=== PATIENT | male | born 1955 | race Caucasian/White ===

== ENCOUNTER 2018-05-07 05:26 | Inpatient (IN) | payer MEDICAID ==
[~2018-05-07] VITALS: Ht 167.6 cm; Wt 92.6 kg
[2018-05-07] VITALS (8 sets, daily range): BP systolic 112–147; BP diastolic 64–81
[2018-05-07] MEDS ORDERED: ONDANSETRON HCL 4MG/2ML INJ IV STA (05:32)
[2018-05-07] MEDS ORDERED: FUROSEMIDE 40MG/4ML VIAL IV ONE (05:45)
[2018-05-07] MEDS ORDERED: NITROGLYCERIN OINT 1GM/INCH UDPKT TD ONE (05:45)
[2018-05-07 06:03] LABS: BG BASE EXCESS 3.5 mmol/L (-2.0-2.0); BG BILEVEL POS AIRWAY PRESSURE 15/5; BG CARBOXYHEMOGLOBIN 2.3 % (0.5-1.5); BG DEOXYHEMOGLOBIN 11.4 % (0.0-5.0); BG FRACTION INSPIRED OXYGEN 50; BG HCO3 ACT 29.1 mmol/L (22.0-26.0); BG METHEMOGLOBIN 0.3 % (0.0-1.5); BG OXYGEN SATURATION 88.3 % (92.0-98.5); BG PCO2 47.8 mmHg (35.0-45.0); BG PH 7.402 (7.350-7.450); BG PO2 56.7 mmHg (75.0-100.0); BG SAMPLE SITE RIGHT BRACHIAL; BG TOTAL HEMOGLOBIN 13.1 g/dL (12.0-18.0); BG VENT MODE MASK - BIPAP
[2018-05-07 06:19] LABS: CHLORIDE 95 mEq/L (98-107)
[2018-05-07 06:21] LABS: BASOPHILS % 0.7 % (0.0-2.0); EOSINOPHILS % 0.5 % (0.0-5.0); HEMATOCRIT. 38.5 % (42.0-52.0); HEMOGLOBIN. 12.8 g/dL (14.0-18.0); LYMPHOCYTES % 23.3 % (20.0-50.0); MEAN CORPUSCULAR HEMOGLOBIN 30.4 pg (28.0-32.0); MEAN CORPUSCULAR VOLUME 91.3 fL (80.0-94.0); MEAN PLATELET VOLUME 6.7 fl (7.4-10.4); MONOCYTES % 6.3 % (2.0-8.0); NEUTROPHILS % 69.2 % (40.0-76.0); PLATELET 511 x1000/uL (130-400); RED BLOOD CELL COUNT 4.22 mill/uL (4.7-6.1); RED CELL DISTRIBUTION WIDTH 15.1 % (11.6-14.6)
[2018-05-07] MEDS ORDERED: DOCUSATE SODIUM 100MG CAPSULE PO PRN (07:30)
[2018-05-07] MEDS ORDERED: LORAZEPAM 0.5MG TABLET PO PRN (07:30)
[2018-05-07] MEDS ORDERED: ACETAMINOPHEN 325MG TABLET PO PRN (07:30)
[2018-05-07] MEDS ORDERED: IPRATROPIUM/ALBUTEROL 0.5-3(2.5)MG/3ML NEB INH PRN (07:30)
[2018-05-07] MEDS ORDERED: ONDANSETRON HCL 4MG/2ML INJ IV PRN (07:30)
[2018-05-07] MEDS ORDERED: TRAMADOL 50MG TABLET PO PRN (07:30)
[2018-05-07] MEDS ORDERED: CLONIDINE 0.1MG TABLET PO PRN (07:30)
[2018-05-07] MEDS ORDERED: MAGNESIUM/ALUMINUM HYDROXIDE/SIMETHICONE 30ML UDC PO PRN (07:30)
[2018-05-07] MEDS ORDERED: NITROGLYCERIN 0.4MG TABLET SL SL PRN (07:30)
[2018-05-07] MEDS: FUROSEMIDE 40MG/4ML VIAL IVP SCH ×2 (09:53→18:37)
[2018-05-07] MEDS: LISINOPRIL 20MG TABLET PO SCH ×2 (09:53→22:27)
[2018-05-07] MEDS: ASPIRIN 325MG EC TABLET PO SCH (09:53)
[2018-05-07] MEDS: SPIRONOLACTONE 25MG TABLET PO SCH ×2 (09:53→22:26)
[2018-05-07] MEDS: FAMOTIDINE 20MG TABLET PO SCH ×2 (09:53→22:28)
[2018-05-07] MEDS: ENOXAPARIN 100MG/ML SYR SUBCUT SCH ×2 (09:56→22:28)
[2018-05-07 15:53] LABS: CREATINE KINASE MB FRACTION 10.3 ng/mL (0.5-3.6)
[2018-05-07] MEDS: NITROGLYCERIN OINT 1GM/INCH UDPKT TD SCH ×2 (18:37→23:00)
[2018-05-07] MEDS: AMLODIPINE 2.5MG TABLET PO SCH ×2 (18:38→22:27)
[2018-05-07] MEDS: IPRATROPIUM/ALBUTEROL 0.5-3(2.5)MG/3ML NEB HHN SCH (20:49)
[2018-05-07] MEDS ORDERED: ZOLPIDEM TARTRATE 5MG TABLET PO PRN (21:00)
[2018-05-07] MEDS: GUAIFENESIN 200MG/10ML SUGAR FREE UDC PO PRN (22:27)
[2018-05-08] VITALS (17 sets, daily range): BP systolic 111–146; BP diastolic 46–78
[2018-05-08] MEDS: IPRATROPIUM/ALBUTEROL 0.5-3(2.5)MG/3ML NEB HHN SCH ×4 (01:47→20:25)
[2018-05-08] MEDS: NITROGLYCERIN OINT 1GM/INCH UDPKT TD SCH ×4 (05:00→23:00)
[2018-05-08 08:22] LABS: D-DIMER 0.77 mg/L FEU (<0.50); INR 1.1; PROTHROMBIN TIME 10.8 sec (9.1-11.1)
[2018-05-08 08:23] LABS: BASOPHILS % 0.2 % (0.0-2.0); EOSINOPHILS % 2.2 % (0.0-5.0); HEMATOCRIT. 38.2 % (42.0-52.0); HEMOGLOBIN. 12.3 g/dL (14.0-18.0); LYMPHOCYTES % 31.9 % (20.0-50.0); MEAN CORPUSCULAR HEMOGLOBIN 29.4 pg (28.0-32.0); MEAN CORPUSCULAR VOLUME 91.1 fL (80.0-94.0); MEAN PLATELET VOLUME 7.2 fl (7.4-10.4); MONOCYTES % 9.6 % (2.0-8.0); NEUTROPHILS % 56.1 % (40.0-76.0); PLATELET 484 x1000/uL (130-400); RED CELL DISTRIBUTION WIDTH 15.3 % (11.6-14.6)
[2018-05-08 08:42] LABS: CHLORIDE 101 mEq/L (98-107)
[2018-05-08 08:52] LABS: LDL CHOLESTEROL 167 mg/dL (5-100)
[2018-05-08 08:53] LABS: CREATINE KINASE 484 IU/L (39-308); CREATINE KINASE MB FRACTION 4.8 ng/mL (0.5-3.6)
[2018-05-08 08:54] LABS: HDL CHOLESTEROL 41 mg/dL (40-59)
[2018-05-08] MEDS: ASPIRIN 325MG EC TABLET PO SCH (09:00)
[2018-05-08] MEDS: AMLODIPINE 2.5MG TABLET PO SCH ×2 (09:00→20:31)
[2018-05-08] MEDS: LISINOPRIL 20MG TABLET PO SCH (09:00)
[2018-05-08] MEDS: SPIRONOLACTONE 25MG TABLET PO SCH ×2 (09:00→20:30)
[2018-05-08] MEDS: FAMOTIDINE 20MG TABLET PO SCH ×2 (09:00→20:30)
[2018-05-08] MEDS: FUROSEMIDE 40MG/4ML VIAL IVP SCH ×2 (09:32→17:46)
[2018-05-08 10:01] LABS: *BARBITURATES SCREEN URINE NEGATIVE (NEGATIVE)
[2018-05-08 10:02] LABS: *AMPHETAMINES SCREEN URINE NEGATIVE (NEGATIVE); *BENZODIAZEPINES SCREEN URINE NEGATIVE (NEGATIVE); *COCAINE SCREEN URINE NEGATIVE (NEGATIVE); CANNABINOID URINE SCREEN PRESUMTIVE POSITIVE (NEGATIVE); METHADONE URINE SCREEN NEGATIVE (NEGATIVE); OPIATES URINE SCREEN NEGATIVE (NEGATIVE); PHENCYCLIDINE URINE SCREEN NEGATIVE (NEGATIVE)
[2018-05-08] MEDS ORDERED: IODIXANOL 320MG/ML 100 ML BOTTLE IV ONE (11:12)
[2018-05-08] MEDS ORDERED: LIDOCAINE HCL 1% 20ML VIAL (Pyxis) INJ ONE (11:12)
[2018-05-08] MEDS ORDERED: MIDAZOLAM HCL 2 MG/2 ML VIAL ONE (11:25)
[2018-05-08] MEDS ORDERED: FENTANYL CITRATE/PF 50MCG/ML 2ML VIAL ONE (11:26)
[2018-05-08] MEDS ORDERED: ASPIRIN/SOD BICARB/CITRIC ACID 324MG TAB EFF ONE (11:41)
[2018-05-08] MEDS ORDERED: ONDANSETRON HCL 4MG/2ML INJ IV PRN (12:00)
[2018-05-08] MEDS ORDERED: MORPHINE SULFATE 4 MG/ML CPJ (NOT FOR IM USE) IV PRN (12:00)
[2018-05-08] MEDS ORDERED: ACETAMINOPHEN 325MG TABLET PO PRN (12:00)
[2018-05-08] MEDS ORDERED: ATROPINE SULFATE 1MG/10ML SYR IV PRN (12:00)
[2018-05-08] MEDS ORDERED: SODIUM CHLORIDE 0.45% 500 ML IV ONE (12:00)
[2018-05-08] MEDS: NICOTINE 21MG PATCH TD SCH (13:30)
[2018-05-08 14:16] LABS: T4 FREE 0.84 ng/dL (0.76-1.46)
[2018-05-08 14:37] LABS: HEPATITIS B SURFACE ANTIGEN NEGATIVE
[2018-05-08] MEDS ORDERED: NITROGLYCERIN 50MCG/ML 10ML VIAL (CATH LAB) IV ONE (14:45)
[2018-05-08] MEDS ORDERED: NICARDIPINE 100MCG/ML 10ML VIAL (CATH LAB) IV ONE (14:45)
[2018-05-08 15:06] LABS: HEPATITIS A AB IGM NEGATIVE (NEGATIVE)
[2018-05-08] MEDS ORDERED: HEPARIN SODIUM 1,000 UNIT/1ML VIAL IV ONE (16:04)
[2018-05-08] MEDS: BUDESONIDE 0.5MG/2ML NEB HHN SCH (20:25)
[2018-05-08] MEDS: LOSARTAN POTASSIUM 25 MG TABLET PO SCH (20:30)
[2018-05-08] MEDS: GUAIFENESIN 200MG/10ML SUGAR FREE UDC PO PRN (20:31)
[2018-05-09] VITALS (10 sets, daily range): BP systolic 102–146; BP diastolic 41–78
[2018-05-09] MEDS: IPRATROPIUM/ALBUTEROL 0.5-3(2.5)MG/3ML NEB HHN SCH ×2 (02:15→09:00)
[2018-05-09] MEDS: NITROGLYCERIN OINT 1GM/INCH UDPKT TD SCH ×2 (05:12→11:00)
[2018-05-09 06:26] LABS: BASOPHILS % 1.1 % (0.0-2.0); EOSINOPHILS % 3.5 % (0.0-5.0); HEMATOCRIT. 37.5 % (42.0-52.0); HEMOGLOBIN. 12.2 g/dL (14.0-18.0); LYMPHOCYTES % 25.9 % (20.0-50.0); MEAN CORPUSCULAR HEMOGLOBIN 29.8 pg (28.0-32.0); MEAN CORPUSCULAR VOLUME 91.5 fL (80.0-94.0); MEAN PLATELET VOLUME 7.6 fl (7.4-10.4); MONOCYTES % 8.6 % (2.0-8.0); NEUTROPHILS % 60.9 % (40.0-76.0); PLATELET 457 x1000/uL (130-400); RED CELL DISTRIBUTION WIDTH 15.3 % (11.6-14.6)
[2018-05-09] MEDS: FUROSEMIDE 40MG/4ML VIAL IVP SCH (06:47)
[2018-05-09 07:24] LABS: CHLORIDE 102 mEq/L (98-107)
[2018-05-09] MEDS: LOSARTAN POTASSIUM 25 MG TABLET PO SCH (08:40)
[2018-05-09] MEDS: AMLODIPINE 2.5MG TABLET PO SCH (08:42)
[2018-05-09] MEDS: SPIRONOLACTONE 25MG TABLET PO SCH (08:43)
[2018-05-09] MEDS: ASPIRIN 325MG EC TABLET PO SCH (08:43)
[2018-05-09] MEDS: FAMOTIDINE 20MG TABLET PO SCH (08:43)
[2018-05-09] MEDS: BUDESONIDE 0.5MG/2ML NEB HHN SCH (09:00)
[2018-05-09] MEDS: NICOTINE 21MG PATCH TD SCH (09:00)
[2018-05-09 14:42] LABS: CLARITY URINE CLEAR (CLEAR); COLOR URINE YELLOW (YELLOW); KETONES URINE NEGATIVE (NEGATIVE); LEUKOCYTE ESTERASE URINE NEGATIVE (NEGATIVE); NITRITE URINE NEGATIVE (NEGATIVE); OCCULT BLOOD URINE NEGATIVE (NEGATIVE); PH URINE 7.5 (4.5-8.0); PROTEIN URINE 2+ (NEGATIVE); SPECIFIC GRAVITY URINE 1.006 (1.005-1.030); UROBILINOGEN URINE 0.2 E.U./dL (0.2-1.0)
[2018-05-09] MEDS ORDERED: ATORVASTATIN CALCIUM 40MG TABLET PO SCH (21:00)
[2018-05-09] MEDS ORDERED: ATORVASTATIN CALCIUM 20MG TABLET PO SCH (21:00)
[2018-05-10 08:26] LABS: HIV SCREEN 4G Non Reactive (Non Reactive)
[2018-05-11 10:06] LABS: ANGIOTENSION CONVERTING ENZYME < 15 U/L (14-82); ANTI-NUCLEAR ANTIBODIES DIRECT Negative (Negative); DRVVT LA 34.7 sec (0.0-47.0); LUPUS ANTICOAG INTERPRETATION Comment: (.); PTT-LA 41.6 sec (0.0-51.9)
[2018-05-11 13:11] LABS: ACTIN (SMOOTH MUSCLE) ANTIBODY 44 Units (0-19); ANTI-MYELOPEROXIDASE AB < 9.0 U/mL (0.0-9.0); ANTI-PROTEINASE 3 ABS < 3.5 U/mL (0.0-3.5)
[2018-05-11 15:07] LABS: ATYPICAL P-ANCA <1:20 titer (Neg:<1:20); CYTOPLASMIC C-ANCA <1:20 titer (Neg:<1:20); PERINUCLEAR P-ANCA <1:20 titer (Neg:<1:20)
[2018-05-13 13:06] LABS: ANTI-CARDIOLIPIN AB IGA < 9 APL U/mL (0-11); ANTI-CARDIOLIPIN AB IGG < 9 GPL U/mL (0-14)
== END 2018-05-09 15:37 | disposition home or self-care (01) | DRG 190 ==
LOC: ER 05:26 → 5EST 05:48 → EDBEDREQTM 05:49 → EDBEDREQ 05:49 → EDBEDREQSVC 05:50 → ENRESERV 07:37 → 5EST 05-08 06:33 → 3WST 05-08 12:30
PROVIDERS: ADMIT Internal Medicine; ATTEND Internal Medicine
PROC: 5A09357 Assistance with Respiratory Ventilation, Less than 24 Consecutive Hours, Continuous Positive Airway Pressure (ICD-10-PCS; principal; 2018-05-07)
PROC: 4A023N7 Measurement of Cardiac Sampling and Pressure, Left Heart, Percutaneous Approach (ICD-10-PCS; 2018-05-08)
PROC: B2111ZZ Fluoroscopy of Multiple Coronary Arteries using Low Osmolar Contrast (ICD-10-PCS; 2018-05-08)
PROC: B2151ZZ Fluoroscopy of Left Heart using Low Osmolar Contrast (ICD-10-PCS; 2018-05-08)
DX: I21.4 Non-ST elevation (NSTEMI) myocardial infarction (principal); J96.01 Acute respiratory failure with hypoxia; I50.43 Acute on chronic combined systolic (congestive) and diastolic (congestive) heart failure; E44.0 Moderate protein-calorie malnutrition; E87.5 Hyperkalemia; E11.65 Type 2 diabetes mellitus with hyperglycemia; E11.51 Type 2 diabetes mellitus with diabetic peripheral angiopathy without gangrene; E87.1 Hypo-osmolality and hyponatremia; E78.2 Mixed hyperlipidemia; I11.0 Hypertensive heart disease with heart failure; I25.10 Atherosclerotic heart disease of native coronary artery without angina pectoris; J44.1 Chronic obstructive pulmonary disease with (acute) exacerbation; F17.210 Nicotine dependence, cigarettes, uncomplicated; Z68.33 Body mass index [BMI] 33.0-33.9, adult; I25.2 Old myocardial infarction; Z59.0 Homelessness; Z79.4 Long term (current) use of insulin; Z89.512 Acquired absence of left leg below knee; Z97.14 Presence of artificial left leg (complete) (partial)
CPT/HCPCS: 36415; 36600; 71045; 80048; 80061; 80305; 82164; 82375; 82550; 82553; 82805; 82962; 83036; 83520; 83735; 83880; 84439; 84443; 84481; 84484; 85379; 85613; 85651; 85732; 86038; 86140; 86147; 86256; 86705; 86709; 86803; 87340; 87389; 93005; 93306; 93458; 93970; 94640; 94660; 96374; 99291; C1769; C1887; C1893; J1644; J1650; J1940; J2250; J2405; J3010; J3490; J7620; J7626; Q9967

== ENCOUNTER 2025-02-05 14:03 | Inpatient (IN) | payer MEDICARE, MEDICAID ==
[~2025-02-05] VITALS: Ht 172.7 cm; Wt 85.3 kg
[2025-02-05] VITALS (30 sets, daily range): BP systolic 120–145; BP diastolic 44–59; PULSE 44–90; RESP 15–23; TEMP 36.4–38.1; O2SAT 55–100
[2025-02-05] MEDS: SODIUM CHLORIDE 0.9% 1,000 ML IV ONE (14:34)
[2025-02-05] MEDS: CALCIUM GLUCONATE 100MG/ML 10ML VIAL IV ONE ×2 (14:46→16:01)
[2025-02-05 14:59] LABS: BASOPHILS % 0.3 % (0.0-2.0); EOSINOPHILS % 0.1 % (0.0-5.0); HEMATOCRIT. 30.7 % (42.0-52.0); HEMOGLOBIN. 9.7 g/dL (14.0-18.0); LYMPHOCYTES % 24.4 % (20.0-50.0); MEAN PLATELET VOLUME 8.9 fl (7.4-10.4); MONOCYTES % 8.3 % (2.0-8.0); NEUTROPHILS % 66.9 % (40.0-76.0); PLATELET 275 x1000/uL (130-400); RED BLOOD CELL COUNT 3.39 mill/uL (4.7-6.1); RED CELL DISTRIBUTION WIDTH 18.3 % (11.6-14.6)
[2025-02-05 15:13] LABS: UREA NITROGEN BLOOD 62 mg/dL (9-23)
[2025-02-05 15:14] LABS: ASPARTATE AMINOTRANSFERASE 20 IU/L (<34)
[2025-02-05 15:15] LABS: BILIRUBIN DIRECT < 0.1 mg/dL (<=3.0); BILIRUBIN TOTAL < 0.2 mg/dL (0.1-1.0); PHOSPHORUS 7.7 mg/dL (2.5-4.9); PROTEIN TOTAL 6.6 g/dL (6.0-8.3)
[2025-02-05 15:17] LABS: TROPONIN I HIGH SENSITIVITY 9 ng/L (3.0-53)
[2025-02-05 15:20] LABS: CREATININE 5.7 mg/dL (0.6-1.3)
[2025-02-05 15:25] LABS: INR 1.1
[2025-02-05] MEDS: LACTATED RINGERS 1,000 ML IV SCH ×2 (15:53→15:54)
[2025-02-05] MEDS: CALCIUM GLUCONATE 1GM PREMIX 50 ML IV ONE (16:01)
[2025-02-05] MEDS: DEXTROSE 50% WATER 50ML SYRINGE IV ONE (16:09)
[2025-02-05] MEDS: INSULIN REGULAR (HUMULIN R) 1000UNITS/10ML VIAL IV ONE (16:09)
[2025-02-05] MEDS: ALBUTEROL (0.083%) 2.5MG/3ML NEB HHN ONE (16:17)
[2025-02-05] MEDS ORDERED: VANCOMYCIN 1G PREMIX 200 ML IV SCH (17:15)
[2025-02-05] MEDS ORDERED: DEXTROSE 50% WATER 50ML SYRINGE IV PRN (17:30)
[2025-02-05] MEDS ORDERED: ONDANSETRON HCL 4MG/2ML INJ IV PRN (17:30)
[2025-02-05] MEDS ORDERED: IPRATROPIUM/ALBUTEROL 0.5-3(2.5)MG/3ML NEB HHN PRN (17:30)
[2025-02-05] MEDS ORDERED: ACETAMINOPHEN 650MG SUPP PR PRN (17:30)
[2025-02-05] MEDS: NOREPINEPHRINE 8MG/250ML PMX 250 ML IV ONE (17:40)
[2025-02-05] MEDS ORDERED: EPINEPHRINE 10 MG in SODIUM CHLORIDE 0.9% 240 ML IV PRN (17:45)
[2025-02-05 17:48] LABS: CLARITY URINE CLEAR (CLEAR); COLOR URINE YELLOW (YELLOW); PH URINE 5.5 (4.5-8.0); PROTEIN URINE 1+ (NEGATIVE); SPECIFIC GRAVITY URINE 1.017 (1.005-1.030)
[2025-02-05 17:49] LABS: GLUCOSE URINE TRACE (NEGATIVE); KETONES URINE TRACE (NEGATIVE); LEUKOCYTE ESTERASE URINE NEGATIVE (NEGATIVE); NITRITE URINE NEGATIVE (NEGATIVE); OCCULT BLOOD URINE NEGATIVE (NEGATIVE); UROBILINOGEN URINE 0.2 E.U./dL (0.2-1.0)
[2025-02-05 17:55] LABS: BG BASE EXCESS -11.8 mmol/L (-2.0-3.0); BG CARBOXYHEMOGLOBIN 0.3 % (0.5-1.5); BG DEOXYHEMOGLOBIN 0.1 % (0.0-5.0); BG FRACTION INSPIRED OXYGEN 100; BG HCO3 ACT 13.4 mmol/L (21.0-28.0); BG METHEMOGLOBIN 0.0 % (0.5-1.5); BG OXYGEN SATURATION 99.9 % (94.0-98.0); BG OXYHEMOGLOBIN 99.6 % (94.0-98.0); BG PCO2 28.8 mmHg (35.0-48.0); BG PEEP (cmH2O) 10.0 cmH2O; BG PH 7.286 (7.350-7.450); BG PO2 533.2 mmHg (83.0-108.0); BG SAMPLE SITE LEFT RADIAL; BG TIDAL VOLUME(mL) 450.0 mL; BG TOTAL HEMOGLOBIN 11.8 g/dL (13.5-17.5); BG VENT MODE VENT - AC; BG VENT RATE 18.0 set
[2025-02-05] MEDS: PIPERACILLIN/TAZO 3.375G/50ML 50 ML IV SCH (17:56)
[2025-02-05] MEDS: EPINEPHRINE 10 MG in SODIUM CHLORIDE 0.9% 240 ML IV PRN (17:56)
[2025-02-05 17:58] LABS: BACTERIA URINE 1+; RBC URINE 0-2 /hpf (0-2); SQUAMOUS EPITHELIAL CELL URINE FEW /lpf (RARE/1+); WBC URINE 0-2 /hpf (0-2)
[2025-02-05] MEDS ORDERED: NOREPINEPHRINE 8MG/250ML PMX 250 ML IV PRN (18:00)
[2025-02-05] MEDS: DOPAMINE 400MG/250ML PREMIX 250 ML IV PRN (18:08)
[2025-02-05] MEDS: SODIUM BICARBONATE 8.4% 50MEQ/50ML SYR IV SCH (18:08)
[2025-02-05 18:19] LABS: BASOPHILS % 0.4 % (0.0-2.0); EOSINOPHILS % 0.2 % (0.0-5.0); HEMATOCRIT. 30.6 % (42.0-52.0); HEMOGLOBIN. 9.4 g/dL (14.0-18.0); LYMPHOCYTES % 32.7 % (20.0-50.0); MEAN PLATELET VOLUME 9.2 fl (7.4-10.4); MONOCYTES % 8.7 % (2.0-8.0); NEUTROPHILS % 58.0 % (40.0-76.0); PLATELET 189 x1000/uL (130-400); RED BLOOD CELL COUNT 3.27 mill/uL (4.7-6.1); RED CELL DISTRIBUTION WIDTH 18.5 % (11.6-14.6)
[2025-02-05 18:37] LABS: UREA NITROGEN BLOOD 48 mg/dL (9-23)
[2025-02-05 18:39] LABS: CREATINE KINASE MB FRACTION 3.7 ng/mL (0.5-3.6); TROPONIN I HIGH SENSITIVITY 10 ng/L (3.0-53)
[2025-02-05 18:42] LABS: CREATININE 5.0 mg/dL (0.6-1.3); FOLIC ACID (FOLATE) SERUM 11.97 ng/mL (>5.38)
[2025-02-05 18:43] LABS: PHOSPHORUS 8.1 mg/dL (2.5-4.9); VITAMIN B12 SERUM < 60 pg/mL (211-911)
[2025-02-05] MEDS ORDERED: CEFEPIME 2GM IN DEXT 5% 100ML IV SCH (19:00)
[2025-02-05 19:14] LABS: HEPATITIS A AB IGM NEGATIVE (Negative); HEPATITIS B CORE AB IGM NEGATIVE (Negative)
[2025-02-05 19:15] LABS: HEPATITIS C AB NON REACTIVE (Neg) (Negative)
[2025-02-05 19:36] LABS: BG BASE EXCESS -5.8 mmol/L (-2.0-3.0); BG CARBOXYHEMOGLOBIN 0.3 % (0.5-1.5); BG DEOXYHEMOGLOBIN 1.0 % (0.0-5.0); BG FRACTION INSPIRED OXYGEN 100; BG HCO3 ACT 19.0 mmol/L (21.0-28.0); BG METHEMOGLOBIN 0.1 % (0.5-1.5); BG OXYGEN SATURATION 99.0 % (94.0-98.0); BG OXYHEMOGLOBIN 98.6 % (94.0-98.0); BG PCO2 34.8 mmHg (35.0-48.0); BG PEEP (cmH2O) 10.0 cmH2O; BG PH 7.355 (7.350-7.450); BG PO2 169.9 mmHg (83.0-108.0); BG SAMPLE SITE RIGHT BRACHIAL; BG TIDAL VOLUME(mL) 450.0 mL; BG TOTAL HEMOGLOBIN 10.7 g/dL (13.5-17.5); BG VENT MODE VENT - AC; BG VENT RATE 18.0 set
[2025-02-05] MEDS: DEXTROSE 50% WATER 50ML SYRINGE IV NR (20:07)
[2025-02-05] MEDS: SODIUM BICARBONATE 8.4% 50MEQ/50ML SYR IV NR (20:07)
[2025-02-05] MEDS: CALCIUM CHLORIDE 1GM/10ML SYR IV NR (20:07)
[2025-02-05] MEDS: INSULIN REGULAR (HUMULIN R) 1000UNITS/10ML VIAL IV NR (20:08)
[2025-02-05] MEDS: BLOOD SUGAR DIAGNOSTIC STRIP TEST SCH (22:33)
[2025-02-05] MEDS: CEFEPIME 2GM PREMIX 100ML IV SCH (22:55)
[2025-02-06] VITALS (121 sets, daily range): BP systolic 106–172; BP diastolic 35–125; PULSE 55–99; RESP 0–28; TEMP 37.1–38.4; O2SAT 95–100
[2025-02-06 00:33] LABS: TROPONIN I HIGH SENSITIVITY 35 ng/L (3.0-53)
[2025-02-06] MEDS: PROPOFOL 10MG/ML 100ML 100 ML IV SCH (00:39)
[2025-02-06 03:02] LABS: BG BASE EXCESS -4.0 mmol/L (-2.0-3.0); BG CARBOXYHEMOGLOBIN 0.3 % (0.5-1.5); BG DEOXYHEMOGLOBIN 11.9 % (0.0-5.0); BG FRACTION INSPIRED OXYGEN 40; BG HCO3 ACT 18.8 mmol/L (21.0-28.0); BG METHEMOGLOBIN 0.3 % (0.5-1.5); BG OXYGEN SATURATION 88.0 % (94.0-98.0); BG OXYHEMOGLOBIN 87.5 % (94.0-98.0); BG PCO2 27.4 mmHg (35.0-48.0); BG PEEP (cmH2O) 10.0 cmH2O; BG PH 7.455 (7.350-7.450); BG PO2 53.8 mmHg (83.0-108.0); BG SAMPLE SITE RIGHT BRACHIAL; BG TIDAL VOLUME(mL) 450.0 mL; BG TOTAL HEMOGLOBIN 10.5 g/dL (13.5-17.5); BG VENT MODE VENT - AC; BG VENT RATE 18.0 set
[2025-02-06 05:50] LABS: BG BASE EXCESS -4.9 mmol/L (-2.0-3.0); BG CARBOXYHEMOGLOBIN 0.3 % (0.5-1.5); BG DEOXYHEMOGLOBIN 1.7 % (0.0-5.0); BG FRACTION INSPIRED OXYGEN 100; BG HCO3 ACT 18.3 mmol/L (21.0-28.0); BG METHEMOGLOBIN 0.0 % (0.5-1.5); BG OXYGEN SATURATION 98.3 % (94.0-98.0); BG OXYHEMOGLOBIN 98.0 % (94.0-98.0); BG PCO2 28.2 mmHg (35.0-48.0); BG PEEP (cmH2O) 10.0 cmH2O; BG PH 7.431 (7.350-7.450); BG PO2 123.1 mmHg (83.0-108.0); BG SAMPLE SITE RIGHT RADIAL; BG TIDAL VOLUME(mL) 450.0 mL; BG TOTAL HEMOGLOBIN 10.7 g/dL (13.5-17.5); BG VENT MODE VENT - AC; BG VENT RATE 16.0 set
[2025-02-06 07:06] LABS: BASOPHILS % 0.2 % (0.0-2.0); EOSINOPHILS % 0.0 % (0.0-5.0); HEMATOCRIT. 30.6 % (42.0-52.0); HEMOGLOBIN. 10.0 g/dL (14.0-18.0); LYMPHOCYTES % 10.8 % (20.0-50.0); MEAN PLATELET VOLUME 8.9 fl (7.4-10.4); MONOCYTES % 10.6 % (2.0-8.0); NEUTROPHILS % 78.4 % (40.0-76.0); PLATELET 267 x1000/uL (130-400); RED BLOOD CELL COUNT 3.45 mill/uL (4.7-6.1); RED CELL DISTRIBUTION WIDTH 17.5 % (11.6-14.6)
[2025-02-06 07:16] LABS: TROPONIN I HIGH SENSITIVITY 43 ng/L (3.0-53)
[2025-02-06 07:16] LABS: CREATINE KINASE MB FRACTION 2.1 ng/mL (0.5-3.6)
[2025-02-06 07:48] LABS: TRIGLYCERIDE 278 mg/dL (0-150); UREA NITROGEN BLOOD 34 mg/dL (9-23)
[2025-02-06 07:49] LABS: LDL CHOLESTEROL 24 mg/dL (5-100)
[2025-02-06 07:50] LABS: ASPARTATE AMINOTRANSFERASE 20 IU/L (<34)
[2025-02-06 07:51] LABS: BILIRUBIN TOTAL 0.4 mg/dL (0.1-1.0); PROTEIN TOTAL 6.0 g/dL (6.0-8.3)
[2025-02-06 07:52] LABS: T4 FREE 1.28 ng/dL (0.89-1.76)
[2025-02-06 08:09] LABS: PHOSPHORUS 4.4 mg/dL (2.5-4.9)
[2025-02-06] MEDS: ACETAMINOPHEN 650MG/20.3ML UDC NG PRN (08:10)
[2025-02-06 08:11] LABS: CREATININE 3.2 mg/dL (0.6-1.3)
[2025-02-06] MEDS: PANTOPRAZOLE SODIUM 40 MG/VIAL IV SCH (08:35)
[2025-02-06] MEDS: ENOXAPARIN 40MG/0.4ML SYR SUBCUT SCH (09:05)
[2025-02-06 11:12] LABS: *AMPHETAMINES SCREEN URINE NEGATIVE (NEGATIVE); *BARBITURATES SCREEN URINE NEGATIVE (NEGATIVE); *BENZODIAZEPINES SCREEN URINE NEGATIVE (NEGATIVE); *COCAINE SCREEN URINE NEGATIVE (NEGATIVE)
[2025-02-06 11:13] LABS: CANNABINOID URINE SCREEN NEGATIVE (NEGATIVE); ECSTASY MDMA SCREEN URINE NEGATIVE (NEGATIVE); METHADONE URINE SCREEN NEGATIVE (NEGATIVE); OPIATES URINE SCREEN NEGATIVE (NEGATIVE); PHENCYCLIDINE URINE SCREEN NEGATIVE (NEGATIVE)
[2025-02-06] MEDS: PROPOFOL 10MG/ML 100ML 100 ML IV PRN (13:06)
[2025-02-06] MEDS: VANCOMYCIN 2GM PMX (XELLIA) 400 ML IV SCH (14:17)
[2025-02-06] MEDS: CEFEPIME 1GM PREMIX 50ML IV SCH (21:40)
[2025-02-07] VITALS (100 sets, daily range): BP systolic 122–172; BP diastolic 49–112; PULSE 57–85; RESP 11–24; TEMP 37.6–38; O2SAT 95–100
[2025-02-07 00:54] LABS: CREATINE KINASE MB FRACTION 1.9 ng/mL (0.5-3.6)
[2025-02-07 00:55] LABS: TROPONIN I HIGH SENSITIVITY 35 ng/L (3.0-53)
[2025-02-07 00:56] LABS: ASPARTATE AMINOTRANSFERASE 17 IU/L (<34); BILIRUBIN DIRECT 0.2 mg/dL (<=3.0); BILIRUBIN TOTAL 0.4 mg/dL (0.1-1.0); PROTEIN TOTAL 5.8 g/dL (6.0-8.3)
[2025-02-07 08:18] LABS: BASOPHILS % 0.6 % (0.0-2.0); EOSINOPHILS % 0.5 % (0.0-5.0); HEMATOCRIT. 30.5 % (42.0-52.0); HEMOGLOBIN. 10.0 g/dL (14.0-18.0); LYMPHOCYTES % 16.0 % (20.0-50.0); MEAN PLATELET VOLUME 8.5 fl (7.4-10.4); MONOCYTES % 10.3 % (2.0-8.0); NEUTROPHILS % 72.6 % (40.0-76.0); PLATELET 251 x1000/uL (130-400); RED BLOOD CELL COUNT 3.45 mill/uL (4.7-6.1); RED CELL DISTRIBUTION WIDTH 18.0 % (11.6-14.6)
[2025-02-07 08:29] LABS: CREATININE 2.4 mg/dL (0.6-1.3); TRIGLYCERIDE 276.0 mg/dL (0-150); UREA NITROGEN BLOOD 31.0 mg/dL (9-23)
[2025-02-07] MEDS: CLONIDINE 0.1MG TABLET PO PRN (10:15)
[2025-02-07] MEDS ORDERED: DEXMEDETOMIDINE 100 ML IV PRN (12:00)
[2025-02-07 15:41] LABS: BG BASE EXCESS -5.4 mmol/L (-2.0-3.0); BG CARBOXYHEMOGLOBIN 0.1 % (0.5-1.5); BG DEOXYHEMOGLOBIN 6.6 % (0.0-5.0); BG FRACTION INSPIRED OXYGEN 35; BG HCO3 ACT 17.9 mmol/L (21.0-28.0); BG METHEMOGLOBIN 0.3 % (0.5-1.5); BG OXYGEN SATURATION 93.4 % (94.0-98.0); BG OXYHEMOGLOBIN 93.0 % (94.0-98.0); BG PCO2 28.0 mmHg (35.0-48.0); BG PEEP (cmH2O) 5.0 cmH2O; BG PH 7.424 (7.350-7.450); BG PO2 69.9 mmHg (83.0-108.0); BG SAMPLE SITE RIGHT RADIAL; BG TIDAL VOLUME(mL) 450.0 mL; BG TOTAL HEMOGLOBIN 10.6 g/dL (13.5-17.5); BG VENT MODE VENT - SIMV; BG VENT RATE 14.0 set
[2025-02-07 16:40] LABS: INFLUENZA TYPE A Presumptive Negative (Pres. Neg.); INFLUENZA TYPE B Presumptive Negative (Pres. Neg.)
[2025-02-07 16:41] LABS: RESPIRATORY SYNCYTIAL VIRUS Not Detected (Not Detectd)
[2025-02-07] MEDS: HYDRALAZINE HCL 25MG TABLET PO SCH (21:06)
[2025-02-08] VITALS (105 sets, daily range): BP systolic 142–182; BP diastolic 48–83; PULSE 59–86; RESP 10–25; TEMP 36.8–37.8; O2SAT 94–99
[2025-02-08 06:39] LABS: BASOPHILS % 0.6 % (0.0-2.0); EOSINOPHILS % 0.1 % (0.0-5.0); HEMATOCRIT. 31.0 % (42.0-52.0); HEMOGLOBIN. 9.9 g/dL (14.0-18.0); LYMPHOCYTES % 12.5 % (20.0-50.0); MEAN PLATELET VOLUME 8.3 fl (7.4-10.4); MONOCYTES % 10.0 % (2.0-8.0); NEUTROPHILS % 76.8 % (40.0-76.0); PLATELET 265 x1000/uL (130-400); RED BLOOD CELL COUNT 3.48 mill/uL (4.7-6.1); RED CELL DISTRIBUTION WIDTH 18.2 % (11.6-14.6)
[2025-02-08 07:10] LABS: CREATININE 2.0 mg/dL (0.6-1.3); UREA NITROGEN BLOOD 33.0 mg/dL (9-23)
[2025-02-08] MEDS: TAMSULOSIN HCL 0.4MG SR CAPSULE PO SCH (10:56)
[2025-02-08] MEDS ORDERED: DEXTROSE 50% WATER 50ML SYRINGE IV PRN (11:00)
[2025-02-08] MEDS: INSULIN LISPRO 100 UNITS/ML SUBCUT SCH (13:20)
[2025-02-08 13:27] LABS: BG BASE EXCESS -5.4 mmol/L (-2.0-3.0); BG CARBOXYHEMOGLOBIN 0.1 % (0.5-1.5); BG DEOXYHEMOGLOBIN 3.8 % (0.0-5.0); BG FRACTION INSPIRED OXYGEN 30; BG HCO3 ACT 18.1 mmol/L (21.0-28.0); BG METHEMOGLOBIN 0.3 % (0.5-1.5); BG OXYGEN SATURATION 96.2 % (94.0-98.0); BG OXYHEMOGLOBIN 95.8 % (94.0-98.0); BG PCO2 29.0 mmHg (35.0-48.0); BG PEEP (cmH2O) 5.0 cmH2O; BG PH 7.413 (7.350-7.450); BG PO2 85.1 mmHg (83.0-108.0); BG SAMPLE SITE LEFT RADIAL; BG TIDAL VOLUME(mL) 450.0 mL; BG TOTAL HEMOGLOBIN 11.1 g/dL (13.5-17.5); BG TOTAL RESPIRATORY RATE 19 b/min; BG VENT MODE VENT - SIMV; BG VENT RATE 14.0 set
[2025-02-08] MEDS: HYDRALAZINE 20MG/ML VIAL IV PRN (14:59)
[2025-02-08] MEDS: CEFEPIME 2GM PREMIX 100ML IV SCH (14:59)
[2025-02-08] MEDS: BUDESONIDE 0.5MG/2ML NEB HHN SCH (20:20)
[2025-02-09] VITALS (110 sets, daily range): BP systolic 148–188; BP diastolic 47–82; PULSE 69–88; RESP 12–35; TEMP 36.7–37.6; O2SAT 92–100
[2025-02-09 07:12] LABS: BASOPHILS % 0.5 % (0.0-2.0); EOSINOPHILS % 0.3 % (0.0-5.0); HEMATOCRIT. 33.0 % (42.0-52.0); HEMOGLOBIN. 10.7 g/dL (14.0-18.0); LYMPHOCYTES % 10.9 % (20.0-50.0); MEAN PLATELET VOLUME 7.9 fl (7.4-10.4); MONOCYTES % 10.4 % (2.0-8.0); NEUTROPHILS % 77.9 % (40.0-76.0); PLATELET 272 x1000/uL (130-400); RED BLOOD CELL COUNT 3.69 mill/uL (4.7-6.1); RED CELL DISTRIBUTION WIDTH 18.8 % (11.6-14.6)
[2025-02-09 07:24] LABS: CREATININE 1.8 mg/dL (0.6-1.3)
[2025-02-09 07:25] LABS: UREA NITROGEN BLOOD 36.0 mg/dL (9-23)
[2025-02-09] MEDS: BLOOD SUGAR DIAGNOSTIC STRIP TEST SCH (08:28)
[2025-02-09 08:40] LABS: BG BASE EXCESS -3.1 mmol/L (-2.0-3.0); BG CARBOXYHEMOGLOBIN 0.5 % (0.5-1.5); BG DEOXYHEMOGLOBIN 4.1 % (0.0-5.0); BG FRACTION INSPIRED OXYGEN 30; BG HCO3 ACT 19.4 mmol/L (21.0-28.0); BG METHEMOGLOBIN 0.3 % (0.5-1.5); BG OXYGEN SATURATION 95.9 % (94.0-98.0); BG OXYHEMOGLOBIN 95.1 % (94.0-98.0); BG PCO2 28.0 mmHg (35.0-48.0); BG PEEP (cmH2O) 5.0 cmH2O; BG PH 7.459 (7.350-7.450); BG PO2 78.4 mmHg (83.0-108.0); BG SAMPLE SITE LEFT RADIAL; BG TIDAL VOLUME(mL) 450.0 mL; BG TOTAL HEMOGLOBIN 13.4 g/dL (13.5-17.5); BG VENT MODE VENT - SIMV; BG VENT RATE 14.0 set
[2025-02-09] MEDS: HYDRALAZINE HCL 50MG TABLET PO SCH (12:25)
[2025-02-09] MEDS ORDERED: HYDRALAZINE HCL 50MG TABLET PO SCH (14:00)
[2025-02-10] VITALS (78 sets, daily range): BP systolic 109–181; BP diastolic 44–136; PULSE 66–88; RESP 13–29; TEMP 37.16964–37.9; O2SAT 96–100
[2025-02-10 06:50] LABS: BASOPHILS % 0.6 % (0.0-2.0); EOSINOPHILS % 0.1 % (0.0-5.0); HEMATOCRIT. 32.4 % (42.0-52.0); HEMOGLOBIN. 10.4 g/dL (14.0-18.0); LYMPHOCYTES % 10.7 % (20.0-50.0); MEAN PLATELET VOLUME 7.9 fl (7.4-10.4); MONOCYTES % 11.1 % (2.0-8.0); NEUTROPHILS % 77.5 % (40.0-76.0); PLATELET 241 x1000/uL (130-400); RED BLOOD CELL COUNT 3.62 mill/uL (4.7-6.1); RED CELL DISTRIBUTION WIDTH 19.1 % (11.6-14.6)
[2025-02-10 07:16] LABS: CREATININE 1.9 mg/dL (0.6-1.3)
[2025-02-10 07:17] LABS: UREA NITROGEN BLOOD 47 mg/dL (9-23)
[2025-02-10 07:19] LABS: PHOSPHORUS 2.5 mg/dL (2.5-4.9)
[2025-02-10] MEDS: ENOXAPARIN 30MG/0.3ML SYR SUBCUT SCH (09:23)
[2025-02-10 15:02] LABS: BG BASE EXCESS -3.5 mmol/L (-2.0-3.0); BG CARBOXYHEMOGLOBIN 1.0 % (0.5-1.5); BG DEOXYHEMOGLOBIN 2.3 % (0.0-5.0); BG FRACTION INSPIRED OXYGEN 40; BG HCO3 ACT 19.6 mmol/L (21.0-28.0); BG METHEMOGLOBIN 0.3 % (0.5-1.5); BG OXYGEN SATURATION 97.7 % (94.0-98.0); BG OXYHEMOGLOBIN 96.4 % (94.0-98.0); BG PCO2 29.1 mmHg (35.0-48.0); BG PEEP (cmH2O) 5.0 cmH2O; BG PH 7.446 (7.350-7.450); BG PO2 106.7 mmHg (83.0-108.0); BG SAMPLE SITE RIGHT RADIAL; BG TIDAL VOLUME(mL) 450.0 mL; BG TOTAL HEMOGLOBIN 11.4 g/dL (13.5-17.5); BG VENT MODE VENT - SIMV; BG VENT RATE 14.0 set
[2025-02-10] MEDS: AMLODIPINE 10MG TABLET PO SCH (17:00)
[2025-02-10] MEDS: BLOOD SUGAR DIAGNOSTIC STRIP TEST SCH (17:00)
[2025-02-10] MEDS: INSULIN LISPRO 100 UNITS/ML SUBCUT SCH (18:23)
[2025-02-10] MEDS: INSULIN GLARGINE 100 UNITS/ML SUBCUT SCH (21:57)
[2025-02-11] VITALS (104 sets, daily range): BP systolic 134–200; BP diastolic 49–97; PULSE 75–93; RESP 15–37; TEMP 37.2–38.4; O2SAT 95–100
[2025-02-11 07:09] LABS: BASOPHILS % 0.5 % (0.0-2.0); EOSINOPHILS % 1.1 % (0.0-5.0); HEMATOCRIT. 32.8 % (42.0-52.0); HEMOGLOBIN. 10.4 g/dL (14.0-18.0); LYMPHOCYTES % 15.6 % (20.0-50.0); MEAN PLATELET VOLUME 8.4 fl (7.4-10.4); MONOCYTES % 13.4 % (2.0-8.0); NEUTROPHILS % 69.4 % (40.0-76.0); PLATELET 235 x1000/uL (130-400); RED BLOOD CELL COUNT 3.67 mill/uL (4.7-6.1); RED CELL DISTRIBUTION WIDTH 19.3 % (11.6-14.6)
[2025-02-11 07:36] LABS: CREATININE 1.8 mg/dL (0.6-1.3); UREA NITROGEN BLOOD 42.0 mg/dL (9-23)
[2025-02-11] MEDS: ACETAMINOPHEN 325MG TABLET PO PRN (08:18)
[2025-02-11] MEDS: HYDRALAZINE HCL 100MG TABLET PO SCH (22:01)
[2025-02-12] VITALS (94 sets, daily range): BP systolic 86–183; BP diastolic 44–113; PULSE 71–99; RESP 14–34; TEMP 37.00296–37.9; O2SAT 50–100
[2025-02-12] MEDS: NOREPINEPHRINE 8MG/250ML PMX 250 ML IV ONE (01:35)
[2025-02-12 06:46] LABS: BASOPHILS % 0.4 % (0.0-2.0); EOSINOPHILS % 1.4 % (0.0-5.0); HEMATOCRIT. 33.5 % (42.0-52.0); HEMOGLOBIN. 10.6 g/dL (14.0-18.0); LYMPHOCYTES % 18.3 % (20.0-50.0); MEAN PLATELET VOLUME 8.5 fl (7.4-10.4); MONOCYTES % 10.5 % (2.0-8.0); NEUTROPHILS % 69.4 % (40.0-76.0); PLATELET 253 x1000/uL (130-400); RED BLOOD CELL COUNT 3.71 mill/uL (4.7-6.1); RED CELL DISTRIBUTION WIDTH 19.8 % (11.6-14.6)
[2025-02-12 07:22] LABS: CREATININE 2.0 mg/dL (0.6-1.3); UREA NITROGEN BLOOD 54.0 mg/dL (9-23)
[2025-02-12 07:40] LABS: BG BASE EXCESS -2.4 mmol/L (-2.0-3.0); BG CARBOXYHEMOGLOBIN 0.9 % (0.5-1.5); BG DEOXYHEMOGLOBIN 2.2 % (0.0-5.0); BG FRACTION INSPIRED OXYGEN 30; BG HCO3 ACT 19.9 mmol/L (21.0-28.0); BG METHEMOGLOBIN 0.1 % (0.5-1.5); BG OXYGEN SATURATION 97.8 % (94.0-98.0); BG OXYHEMOGLOBIN 96.8 % (94.0-98.0); BG PCO2 26.8 mmHg (35.0-48.0); BG PEEP (cmH2O) 5.0 cmH2O; BG PH 7.489 (7.350-7.450); BG PO2 89.2 mmHg (83.0-108.0); BG SAMPLE SITE LEFT RADIAL; BG TIDAL VOLUME(mL) 450.0 mL; BG TOTAL HEMOGLOBIN 10.8 g/dL (13.5-17.5); BG VENT MODE SIMV/VC; BG VENT RATE 14.0 set
[2025-02-12] MEDS: CEFEPIME 1GM PREMIX 50ML IV SCH (08:32)
[2025-02-12] MEDS: INSULIN LISPRO 100 UNITS/ML SUBCUT SCH (08:34)
[2025-02-12] MEDS: DOXYCYCLINE 100MG/100ML 100 ML IV SCH (08:53)
[2025-02-12] MEDS: CARVEDILOL 6.25 MG TABLET NG SCH (09:54)
[2025-02-12] MEDS: MINOXIDIL 2.5MG TABLET NG SCH (09:54)
[2025-02-12] MEDS: INSULIN GLARGINE 100 UNITS/ML SUBCUT SCH (21:44)
[2025-02-13] VITALS (95 sets, daily range): BP systolic 89–163; BP diastolic 42–114; PULSE 68–84; RESP 14–37; TEMP 36.9–38.2; O2SAT 97–100
[2025-02-13 06:22] LABS: BASOPHILS % 0.6 % (0.0-2.0); EOSINOPHILS % 2.1 % (0.0-5.0); HEMATOCRIT. 31.2 % (42.0-52.0); HEMOGLOBIN. 9.9 g/dL (14.0-18.0); LYMPHOCYTES % 25.2 % (20.0-50.0); MEAN PLATELET VOLUME 8.8 fl (7.4-10.4); MONOCYTES % 11.7 % (2.0-8.0); NEUTROPHILS % 60.4 % (40.0-76.0); PLATELET 208 x1000/uL (130-400); RED BLOOD CELL COUNT 3.47 mill/uL (4.7-6.1); RED CELL DISTRIBUTION WIDTH 19.5 % (11.6-14.6)
[2025-02-13 06:35] LABS: CREATININE 2.2 mg/dL (0.6-1.3); UREA NITROGEN BLOOD 55.0 mg/dL (9-23)
[2025-02-13] MEDS: FUROSEMIDE 40MG/4ML VIAL IVP SCH (08:10)
[2025-02-13 09:01] LABS: BG BASE EXCESS -1.3 mmol/L (-2.0-3.0); BG CARBOXYHEMOGLOBIN 0.6 % (0.5-1.5); BG DEOXYHEMOGLOBIN 2.5 % (0.0-5.0); BG FRACTION INSPIRED OXYGEN 30; BG HCO3 ACT 21.9 mmol/L (21.0-28.0); BG METHEMOGLOBIN 0.3 % (0.5-1.5); BG OXYGEN SATURATION 97.5 % (94.0-98.0); BG OXYHEMOGLOBIN 96.6 % (94.0-98.0); BG PCO2 31.6 mmHg (35.0-48.0); BG PEEP (cmH2O) 5.0 cmH2O; BG PH 7.459 (7.350-7.450); BG PO2 92.4 mmHg (83.0-108.0); BG SAMPLE SITE LEFT RADIAL; BG TIDAL VOLUME(mL) 450.0 mL; BG TOTAL HEMOGLOBIN 10.5 g/dL (13.5-17.5); BG TOTAL RESPIRATORY RATE 17 b/min; BG VENT MODE VENT - SIMV; BG VENT RATE 14.0 set
[2025-02-13] MEDS: INSULIN GLARGINE 100 UNITS/ML SUBCUT SCH (21:21)
[2025-02-14] VITALS (99 sets, daily range): BP systolic 88–148; BP diastolic 40–90; PULSE 66–80; RESP 0–35; TEMP 36.4–37.7; O2SAT 10–100
[2025-02-14 07:07] LABS: BASOPHILS % 0.4 % (0.0-2.0); EOSINOPHILS % 2.7 % (0.0-5.0); HEMATOCRIT. 28.8 % (42.0-52.0); HEMOGLOBIN. 9.2 g/dL (14.0-18.0); LYMPHOCYTES % 24.2 % (20.0-50.0); MEAN PLATELET VOLUME 9.4 fl (7.4-10.4); MONOCYTES % 10.7 % (2.0-8.0); NEUTROPHILS % 62.0 % (40.0-76.0); PLATELET 232 x1000/uL (130-400); RED BLOOD CELL COUNT 3.29 mill/uL (4.7-6.1); RED CELL DISTRIBUTION WIDTH 18.6 % (11.6-14.6)
[2025-02-14 07:10] LABS: INR 1.0
[2025-02-14 07:25] LABS: CREATININE 2.5 mg/dL (0.6-1.3); UREA NITROGEN BLOOD 76.0 mg/dL (9-23)
[2025-02-14] MEDS ORDERED: LIDOCAINE HCL/EPINEPHRINE 1%-EPI 1:100,000 20ML VIAL ONE (12:00)
[2025-02-14] MEDS ORDERED: ROCURONIUM BROMIDE 10MG/ML VIAL 5ML IV ONE (14:53)
[2025-02-14] MEDS ORDERED: ACETAMINOPHEN 1000MG/100ML 100 ML IV ONE (14:54)
[2025-02-14] MEDS ORDERED: FENTANYL CITRATE/PF 50MCG/ML 2ML VIAL ONE (15:02)
[2025-02-14] MEDS ORDERED: ONDANSETRON HCL 4MG/2ML INJ ONE (15:02)
[2025-02-15] VITALS (45 sets, daily range): BP systolic 105–163; BP diastolic 43–128; PULSE 71–89; RESP 0–29; TEMP 36.5–37.1; O2SAT 94–99
[2025-02-15 06:52] LABS: BASOPHILS % 0.4 % (0.0-2.0); EOSINOPHILS % 3.3 % (0.0-5.0); HEMATOCRIT. 29.2 % (42.0-52.0); HEMOGLOBIN. 9.3 g/dL (14.0-18.0); LYMPHOCYTES % 17.1 % (20.0-50.0); MEAN PLATELET VOLUME 9.7 fl (7.4-10.4); MONOCYTES % 9.7 % (2.0-8.0); NEUTROPHILS % 69.5 % (40.0-76.0); PLATELET 248 x1000/uL (130-400); RED BLOOD CELL COUNT 3.30 mill/uL (4.7-6.1); RED CELL DISTRIBUTION WIDTH 18.4 % (11.6-14.6)
[2025-02-15 07:02] LABS: CREATININE 2.2 mg/dL (0.6-1.3); UREA NITROGEN BLOOD 78.0 mg/dL (9-23)
[2025-02-15 10:30] LABS: BG BASE EXCESS -0.6 mmol/L (-2.0-3.0); BG CARBOXYHEMOGLOBIN 0.8 % (0.5-1.5); BG DEOXYHEMOGLOBIN 1.2 % (0.0-5.0); BG FRACTION INSPIRED OXYGEN 40; BG HCO3 ACT 23.3 mmol/L (21.0-28.0); BG METHEMOGLOBIN 0.3 % (0.5-1.5); BG OXYGEN SATURATION 98.8 % (94.0-98.0); BG OXYHEMOGLOBIN 97.7 % (94.0-98.0); BG PCO2 35.7 mmHg (35.0-48.0); BG PEEP (cmH2O) 5.0 cmH2O; BG PH 7.433 (7.350-7.450); BG PO2 121.7 mmHg (83.0-108.0); BG SAMPLE SITE LEFT RADIAL; BG TIDAL VOLUME(mL) 450.0 mL; BG TOTAL HEMOGLOBIN 10.6 g/dL (13.5-17.5); BG VENT MODE VENT - AC; BG VENT RATE 16.0 set
[2025-02-16] VITALS (25 sets, daily range): BP systolic 125–158; BP diastolic 53–59; PULSE 79–87; RESP 15–35; TEMP 36.8–38.1; O2SAT 92–99
[2025-02-17] VITALS (21 sets, daily range): BP systolic 132–183; BP diastolic 51–59; PULSE 77–88; RESP 18–28; TEMP 36.7–37.1; O2SAT 94–97
[2025-02-17 06:25] LABS: CREATININE 2.3 mg/dL (0.6-1.3); UREA NITROGEN BLOOD 99.0 mg/dL (9-23)
[2025-02-17 06:40] LABS: BASOPHILS % 0.5 % (0.0-2.0); EOSINOPHILS % 0.7 % (0.0-5.0); HEMATOCRIT. 31.2 % (42.0-52.0); HEMOGLOBIN. 10.2 g/dL (14.0-18.0); LYMPHOCYTES % 17.6 % (20.0-50.0); MEAN PLATELET VOLUME 9.5 fl (7.4-10.4); MONOCYTES % 12.3 % (2.0-8.0); NEUTROPHILS % 68.9 % (40.0-76.0); PLATELET 352 x1000/uL (130-400); RED BLOOD CELL COUNT 3.54 mill/uL (4.7-6.1); RED CELL DISTRIBUTION WIDTH 18.5 % (11.6-14.6)
[2025-02-18] VITALS (24 sets, daily range): BP systolic 116–143; BP diastolic 45–57; PULSE 76–90; RESP 19–35; TEMP 36.3–37.4; O2SAT 90–99
[2025-02-19] VITALS (37 sets, daily range): BP systolic 82–131; BP diastolic 37–86; PULSE 67–83; RESP 8–36; TEMP 36.6–37.8; O2SAT 89–99
[2025-02-19 07:55] LABS: BASOPHILS % 0.5 % (0.0-2.0); EOSINOPHILS % 0.9 % (0.0-5.0); HEMATOCRIT. 27.8 % (42.0-52.0); HEMOGLOBIN. 8.9 g/dL (14.0-18.0); LYMPHOCYTES % 20.4 % (20.0-50.0); MEAN PLATELET VOLUME 9.6 fl (7.4-10.4); MONOCYTES % 10.9 % (2.0-8.0); NEUTROPHILS % 67.3 % (40.0-76.0); PLATELET 376 x1000/uL (130-400); RED BLOOD CELL COUNT 3.14 mill/uL (4.7-6.1); RED CELL DISTRIBUTION WIDTH 18.4 % (11.6-14.6)
[2025-02-19 08:00] LABS: INR 1.1
[2025-02-19 08:24] LABS: PHOSPHORUS 5.6 mg/dL (2.5-4.9)
[2025-02-19 08:46] LABS: CREATININE 4.3 mg/dL (0.6-1.3); UREA NITROGEN BLOOD 168 mg/dL (9-23)
[2025-02-19] MEDS: FUROSEMIDE 40MG/4 ML UDC PO SCH (09:09)
[2025-02-19 13:13] LABS: BG BASE EXCESS 1.3 mmol/L (-2.0-3.0); BG CARBOXYHEMOGLOBIN 0.0 % (0.5-1.5); BG DEOXYHEMOGLOBIN 3.2 % (0.0-5.0); BG FRACTION INSPIRED OXYGEN 90; BG HCO3 ACT 24.8 mmol/L (21.0-28.0); BG METHEMOGLOBIN 0.3 % (0.5-1.5); BG OXYGEN SATURATION 96.8 % (94.0-98.0); BG OXYHEMOGLOBIN 96.5 % (94.0-98.0); BG PCO2 35.2 mmHg (35.0-48.0); BG PEEP (cmH2O) 5.0 cmH2O; BG PH 7.466 (7.350-7.450); BG PO2 89.4 mmHg (83.0-108.0); BG SAMPLE SITE LEFT RADIAL; BG TIDAL VOLUME(mL) 450.0 mL; BG TOTAL HEMOGLOBIN 10.2 g/dL (13.5-17.5); BG VENT MODE VENT - AC; BG VENT RATE 16.0 set
[2025-02-19] MEDS ORDERED: CEFAZOLIN SODIUM 1000MG/VIAL IV PRN (15:30)
[2025-02-19] MEDS ORDERED: CEFAZOLIN 1000MG PREMIX 50ML IV PRN (15:30)
[2025-02-20] VITALS (31 sets, daily range): BP systolic 88–140; BP diastolic 38–55; PULSE 70–96; RESP 2–31; TEMP 36.4–37.7; O2SAT 93–100
[2025-02-20] MEDS: IPRATROPIUM/ALBUTEROL 0.5-3(2.5)MG/3ML NEB HHN SCH (10:08)
[2025-02-20 10:53] LABS: BG BASE EXCESS -2.8 mmol/L (-2.0-3.0); BG CARBOXYHEMOGLOBIN 0.3 % (0.5-1.5); BG DEOXYHEMOGLOBIN 2.4 % (0.0-5.0); BG FRACTION INSPIRED OXYGEN 80; BG HCO3 ACT 20.8 mmol/L (21.0-28.0); BG METHEMOGLOBIN 0.3 % (0.5-1.5); BG OXYGEN SATURATION 97.6 % (94.0-98.0); BG OXYHEMOGLOBIN 97.0 % (94.0-98.0); BG PCO2 31.7 mmHg (35.0-48.0); BG PEEP (cmH2O) 5.0 cmH2O; BG PH 7.435 (7.350-7.450); BG PO2 100.4 mmHg (83.0-108.0); BG SAMPLE SITE LEFT RADIAL; BG TIDAL VOLUME(mL) 450.0 mL; BG TOTAL HEMOGLOBIN 9.9 g/dL (13.5-17.5); BG VENT MODE VENT - AC; BG VENT RATE 16.0 set
[2025-02-20 12:33] LABS: BASOPHILS % 0.4 % (0.0-2.0); EOSINOPHILS % 0.7 % (0.0-5.0); HEMATOCRIT. 27.8 % (42.0-52.0); HEMOGLOBIN. 8.8 g/dL (14.0-18.0); LYMPHOCYTES % 12.9 % (20.0-50.0); MEAN PLATELET VOLUME 9.9 fl (7.4-10.4); MONOCYTES % 9.0 % (2.0-8.0); NEUTROPHILS % 77.0 % (40.0-76.0); PLATELET 335 x1000/uL (130-400); RED BLOOD CELL COUNT 3.08 mill/uL (4.7-6.1); RED CELL DISTRIBUTION WIDTH 18.8 % (11.6-14.6)
[2025-02-20 12:47] LABS: CREATININE 3.7 mg/dL (0.6-1.3)
[2025-02-20 12:58] LABS: UREA NITROGEN BLOOD 130.0 mg/dL (9-23)
[2025-02-20] MEDS: MIDODRINE HCL 5MG TABLET PO SCH (14:17)
[2025-02-20] MEDS: SODIUM CHLORIDE 0.9% 500 ML IV ONE (14:17)
[2025-02-21] VITALS (26 sets, daily range): BP systolic 110–135; BP diastolic 45–73; PULSE 76–95; RESP 2–30; TEMP 36.6–38.8; O2SAT 9–98
[2025-02-21] MEDS ORDERED: ALBUTEROL (0.083%) 2.5MG/3ML NEB HHN NR (04:45)
[2025-02-21 08:19] LABS: INR 1.0
[2025-02-21 08:25] LABS: BASOPHILS % 0.4 % (0.0-2.0); EOSINOPHILS % 0.7 % (0.0-5.0); HEMATOCRIT. 29.0 % (42.0-52.0); HEMOGLOBIN. 9.4 g/dL (14.0-18.0); LYMPHOCYTES % 12.1 % (20.0-50.0); MEAN PLATELET VOLUME 9.8 fl (7.4-10.4); MONOCYTES % 6.7 % (2.0-8.0); NEUTROPHILS % 80.1 % (40.0-76.0); PLATELET 414 x1000/uL (130-400); RED BLOOD CELL COUNT 3.29 mill/uL (4.7-6.1); RED CELL DISTRIBUTION WIDTH 17.7 % (11.6-14.6)
[2025-02-21 08:40] LABS: CREATININE 3.6 mg/dL (0.6-1.3)
[2025-02-21 09:24] LABS: UREA NITROGEN BLOOD 135.0 mg/dL (9-23)
[2025-02-21] MEDS: CEFAZOLIN 1000MG PREMIX 50ML IV NR (13:42)
[2025-02-21] MEDS ORDERED: CEFAZOLIN SODIUM 1000MG/VIAL IV PRN (15:00)
[2025-02-21 16:29] LABS: BG BASE EXCESS 1.1 mmol/L (-2.0-3.0); BG CARBOXYHEMOGLOBIN 0.8 % (0.5-1.5); BG DEOXYHEMOGLOBIN 11.0 % (0.0-5.0); BG FRACTION INSPIRED OXYGEN 60; BG HCO3 ACT 23.3 mmol/L (21.0-28.0); BG METHEMOGLOBIN 0.1 % (0.5-1.5); BG OXYGEN SATURATION 88.9 % (94.0-98.0); BG OXYHEMOGLOBIN 88.1 % (94.0-98.0); BG PCO2 29.1 mmHg (35.0-48.0); BG PEEP (cmH2O) 8.0 cmH2O; BG PH 7.521 (7.350-7.450); BG PO2 52.1 mmHg (83.0-108.0); BG SAMPLE SITE LEFT RADIAL; BG TOTAL HEMOGLOBIN 10.6 g/dL (13.5-17.5); BG VENT MODE VENT - AC/PC; BG VENT RATE 16.0 set
[2025-02-21] MEDS: LORAZEPAM 2MG/ML UD SYRINGE IV NR (18:50)
[2025-02-22] VITALS (16 sets, daily range): BP systolic 105–135; BP diastolic 51–91; PULSE 71–88; RESP 13–26; TEMP 36.6–39.1; O2SAT 95–100
[2025-02-22 09:32] LABS: BG BASE EXCESS -2.9 mmol/L (-2.0-3.0); BG CARBOXYHEMOGLOBIN 0.3 % (0.5-1.5); BG DEOXYHEMOGLOBIN 1.5 % (0.0-5.0); BG FRACTION INSPIRED OXYGEN 80; BG HCO3 ACT 19.3 mmol/L (21.0-28.0); BG METHEMOGLOBIN 0.3 % (0.5-1.5); BG OXYGEN SATURATION 98.5 % (94.0-98.0); BG OXYHEMOGLOBIN 97.9 % (94.0-98.0); BG PCO2 25.2 mmHg (35.0-48.0); BG PEEP (cmH2O) 10.0 cmH2O; BG PH 7.503 (7.350-7.450); BG PIP 22.0 cmH2O; BG PO2 127.8 mmHg (83.0-108.0); BG SAMPLE SITE LEFT RADIAL; BG TOTAL HEMOGLOBIN 9.0 g/dL (13.5-17.5); BG VENT MODE VENT - P/C; BG VENT RATE 16.0 set
[2025-02-22] MEDS ORDERED: DIATR MEGLU/DIATRIZOATE SOLN 30ML ONE (09:59)
[2025-02-23] VITALS (23 sets, daily range): BP systolic 96–127; BP diastolic 55–82; PULSE 74–101; RESP 13–25; TEMP 36.4–38.4; O2SAT 95–100
[2025-02-23 06:06] LABS: BASOPHILS % 0.4 % (0.0-2.0); EOSINOPHILS % 0.4 % (0.0-5.0); HEMATOCRIT. 32.0 % (42.0-52.0); HEMOGLOBIN. 10.2 g/dL (14.0-18.0); LYMPHOCYTES % 13.2 % (20.0-50.0); MEAN PLATELET VOLUME 10.0 fl (7.4-10.4); MONOCYTES % 6.0 % (2.0-8.0); NEUTROPHILS % 80.0 % (40.0-76.0); PLATELET 443 x1000/uL (130-400); RED BLOOD CELL COUNT 3.64 mill/uL (4.7-6.1); RED CELL DISTRIBUTION WIDTH 17.8 % (11.6-14.6)
[2025-02-23 06:24] LABS: CREATININE 3.4 mg/dL (0.6-1.3)
[2025-02-23 06:46] LABS: UREA NITROGEN BLOOD 168.0 mg/dL (9-23)
[2025-02-23] MEDS: HEPARIN 5000 UNITS/ML VIAL SUBCUT SCH (21:45)
[2025-02-24] VITALS (24 sets, daily range): BP systolic 75–128; BP diastolic 47–66; PULSE 74–105; RESP 13–38; TEMP 37.3–39.3; O2SAT 93–100
[2025-02-24] MEDS: SODIUM CHLORIDE 0.9% (SEPSIS BOLUS) IV ONE (04:45)
[2025-02-24] MEDS: SODIUM CHLORIDE 0.45% 500 ML IV ONE (08:00)
[2025-02-24] MEDS: MIDODRINE HCL 5MG TABLET NG SCH (11:07)
[2025-02-24 11:08] LABS: BASOPHILS % 0.6 % (0.0-2.0); EOSINOPHILS % 0.1 % (0.0-5.0); HEMATOCRIT. 29.2 % (42.0-52.0); HEMOGLOBIN. 8.9 g/dL (14.0-18.0); LYMPHOCYTES % 11.4 % (20.0-50.0); MONOCYTES % 6.5 % (2.0-8.0); NEUTROPHILS % 81.4 % (40.0-76.0); RED BLOOD CELL COUNT 3.19 mill/uL (4.7-6.1); RED CELL DISTRIBUTION WIDTH 18.4 % (11.6-14.6)
[2025-02-24 11:22] LABS: CREATININE 4.3 mg/dL (0.6-1.3)
[2025-02-24 11:41] LABS: UREA NITROGEN BLOOD 175.0 mg/dL (9-23)
[2025-02-24 12:31] LABS: PLATELET 465 x1000/uL (130-400)
[2025-02-24] MEDS: LACTOBACILLUS RHAMNOSUS GG CAP PO SCH (13:12)
[2025-02-24] MEDS ORDERED: DEXTROSE 5% WATER 1,000 ML IV SCH ×2 (14:45→14:47)
[2025-02-24] MEDS ORDERED: CEFEPIME 1GM IN DEXT 5% 50ML IV SCH (15:45)
[2025-02-24] MEDS: CEFEPIME 1GM PREMIX 50ML IV SCH (17:54)
[2025-02-24] MEDS: DESMOPRESSIN ACETATE 4MCG/ML AMP IV SCH (21:02)
[2025-02-24] MEDS: INSULIN GLARGINE 100 UNITS/ML SUBCUT SCH (22:47)
[2025-02-25] VITALS (20 sets, daily range): BP systolic 107–143; BP diastolic 48–57; PULSE 74–83; RESP 15–20; TEMP 36.2–38.1; O2SAT 98–100
[2025-02-25 01:55] LABS: CREATININE 4.0 mg/dL (0.6-1.3)
[2025-02-25 02:11] LABS: UREA NITROGEN BLOOD 174.0 mg/dL (9-23)
[2025-02-25 06:32] LABS: BASOPHILS % 0.4 % (0.0-2.0); EOSINOPHILS % 0.9 % (0.0-5.0); HEMATOCRIT. 31.9 % (42.0-52.0); HEMOGLOBIN. 9.5 g/dL (14.0-18.0); LYMPHOCYTES % 15.8 % (20.0-50.0); MEAN PLATELET VOLUME 10.6 fl (7.4-10.4); MONOCYTES % 7.4 % (2.0-8.0); NEUTROPHILS % 75.5 % (40.0-76.0); PLATELET 460 x1000/uL (130-400); RED BLOOD CELL COUNT 3.44 mill/uL (4.7-6.1); RED CELL DISTRIBUTION WIDTH 18.6 % (11.6-14.6)
[2025-02-25 06:58] LABS: CREATININE 3.9 mg/dL (0.6-1.3)
[2025-02-25 07:34] LABS: UREA NITROGEN BLOOD 166.0 mg/dL (9-23)
[2025-02-25] MEDS: DESMOPRESSIN ACETATE 4MCG/ML AMP IV SCH (10:49)
[2025-02-25] MEDS: INSULIN LISPRO 100 UNITS/ML SUBCUT SCH (18:11)
[2025-02-25 19:16] LABS: CREATININE 3.7 mg/dL (0.6-1.3)
[2025-02-25 19:40] LABS: UREA NITROGEN BLOOD 167.0 mg/dL (9-23)
[2025-02-25] MEDS ORDERED: INSULIN GLARGINE 100 UNITS/ML SUBCUT SCH (22:00)
[2025-02-26] MEDS ORDERED: DEXTROSE 5% WATER 1,000 ML IV SCH (15:00)
== END 2025-02-25 21:25 | DRG 4 ==
LOC: ER 14:03 → EDBEDREQSVC 17:27 → EDBEDREQ 17:27 → CVICU 18:28 → 5EST 02-15 10:42
PROVIDERS: ADMIT Internal Medicine; ATTEND Internal Medicine
PROC: 0BH17EZ Insertion of Endotracheal Airway into Trachea, Via Natural or Artificial Opening (ICD-10-PCS; principal; 2025-02-05)
PROC: 5A1955Z Respiratory Ventilation, Greater than 96 Consecutive Hours (ICD-10-PCS; 2025-02-05)
PROC: 5A1D70Z Performance of Urinary Filtration, Intermittent, Less than 6 Hours Per Day (ICD-10-PCS; 2025-02-05)
PROC: 5A1D70Z Performance of Urinary Filtration, Intermittent, Less than 6 Hours Per Day (ICD-10-PCS; 2025-02-10)
PROC: 4A00X4Z Measurement of Central Nervous Electrical Activity, External Approach (ICD-10-PCS; 2025-02-10)
PROC: 5A1D70Z Performance of Urinary Filtration, Intermittent, Less than 6 Hours Per Day (ICD-10-PCS; 2025-02-12)
PROC: 0B110F4 Bypass Trachea to Cutaneous with Tracheostomy Device, Open Approach (ICD-10-PCS; 2025-02-14)
PROC: 5A1D70Z Performance of Urinary Filtration, Intermittent, Less than 6 Hours Per Day (ICD-10-PCS; 2025-02-19)
PROC: 0DH68UZ Insertion of Feeding Device into Stomach, Via Natural or Artificial Opening Endoscopic (ICD-10-PCS; 2025-02-21)
PROC: 5A1D70Z Performance of Urinary Filtration, Intermittent, Less than 6 Hours Per Day (ICD-10-PCS; 2025-02-21)
DX: A41.9 Sepsis, unspecified organism (principal); G92.8 Other toxic encephalopathy; I46.9 Cardiac arrest, cause unspecified; J96.01 Acute respiratory failure with hypoxia; R57.0 Cardiogenic shock; R65.21 Severe sepsis with septic shock; J15.5 Pneumonia due to Escherichia coli; I50.31 Acute diastolic (congestive) heart failure; N17.0 Acute kidney failure with tubular necrosis; G93.1 Anoxic brain damage, not elsewhere classified; M62.82 Rhabdomyolysis; Z99.11 Dependence on respirator [ventilator] status; J91.8 Pleural effusion in other conditions classified elsewhere; Z99.2 Dependence on renal dialysis; G93.49 Other encephalopathy; I13.0 Hypertensive heart and chronic kidney disease with heart failure and stage 1 through stage 4 chronic kidney disease, or unspecified chronic kidney disease; E11.22 Type 2 diabetes mellitus with diabetic chronic kidney disease; D64.9 Anemia, unspecified; E87.0 Hyperosmolality and hypernatremia; E87.1 Hypo-osmolality and hyponatremia; E87.20 Acidosis, unspecified; E11.51 Type 2 diabetes mellitus with diabetic peripheral angiopathy without gangrene; E11.65 Type 2 diabetes mellitus with hyperglycemia; E87.5 Hyperkalemia; I25.10 Atherosclerotic heart disease of native coronary artery without angina pectoris; E83.39 Other disorders of phosphorus metabolism; Z20.822 Contact with and (suspected) exposure to COVID-19; K57.30 Diverticulosis of large intestine without perforation or abscess without bleeding; K80.20 Calculus of gallbladder without cholecystitis without obstruction; S90.821A Blister (nonthermal), right foot, initial encounter; N18.9 Chronic kidney disease, unspecified; K29.70 Gastritis, unspecified, without bleeding; R23.3 Spontaneous ecchymoses; E78.5 Hyperlipidemia, unspecified; K44.9 Diaphragmatic hernia without obstruction or gangrene; R13.12 Dysphagia, oropharyngeal phase; Z89.512 Acquired absence of left leg below knee; Z93.1 Gastrostomy status; Z51.5 Encounter for palliative care; Z89.511 Acquired absence of right leg below knee
CPT/HCPCS: 31720; 36415; 36600; 71045; 71250; 74018; 74176; 76705; 76770; 80048; 80053; 80061; 80076; 80202; 80305; 80320; 81003; 82330; 82375; 82550; 82553; 82607; 82746; 82805; 82962; 83036; 83540; 83550; 83605; 83735; 84100; 84145; 84439; 84443; 84478; 84484; 85025; 86705; 86709; 86850; 86900; 87070; 87077; 87186; 87340; 87420; 87426; 87804; 90935; 93005; 93306; 93922; 93970; 94003; 94070; 94640; 94664; 96361; 96365; 96367; 96375; 98960; 99291; 99292; A4606; J0360; J0612; J0690; J0692; J1265; J1644; J1650; J1815; J1938; J1940; J2004; J2060; J2405; J2470; J2543; J2597; J2704; J3010; J3373; J3490; J7030; J7050; J7626; Q9963; A4217; G0480; J0131